=== PATIENT | male | born 1955 | race Caucasian/White ===

== ENCOUNTER 2024-04-11 06:16 | Day surgery (SDC) | payer MEDICARE, SELFPAY ==
[2024-04-11 12:20] LABS: Glucose - Point of Care 100 mg/dl (70-99)
== END 2024-04-11 14:30 | disposition home or self-care (01) ==
LOC: GI 06:16
PROVIDERS: ATTENDING PHYSICIAN Specialist
DX: Z12.11 Encounter for screening for malignant neoplasm of colon (principal); K63.3 Ulcer of intestine; K57.30 Diverticulosis of large intestine without perforation or abscess without bleeding; K52.9 Noninfective gastroenteritis and colitis, unspecified; D12.3 Benign neoplasm of transverse colon
CPT/HCPCS: 45385; 45380; 88305; 82962

== ENCOUNTER → 2024-05-24 10:57 | Outpatient (REF) | payer MEDICARE, SELFPAY ==
[2024-05-24 15:56] LABS: ALT (SGPT) 60 U/L (0-50); AST (SGOT) 40 U/L (17-59); Albumin 4.4 g/dl (3.5-5.0); Alkaline Phosphatase 63 U/L (38-126); Blood Urea Nitrogen 23 mg/dl (9-20); Calcium 9.6 mg/dl (8.4-10.2); Carbon Dioxide 29 mmol/L (22-30); Chloride 103 mmol/L (98-107); Glucose 97 mg/dl (70-99); HDL Cholesterol 69 mg/dl; Iron 118 ug/dl (49-181); LDL Cholesterol, Calculated 48 mg/dl; Potassium 4.3 mmol/L (3.5-5.1); Sodium 138 mmol/L (135-145); Total Bilirubin 0.8 mg/dl (0.2-1.3); Total Cholesterol 136 mg/dl (50-199); Total Protein 7.1 g/dl (6.3-8.2); Triglyceride 96 mg/dl (10-149); Very Low Density Lipoprotein 19 mg/dl (0-30); eGFR > 60.00
[2024-05-24 16:05] LABS: Percent Saturation 34 % (20-50); Total Iron Binding Capacity 340 ug/dl (261-462)
[2024-05-24 16:27] LABS: Hepatitis B Surface Antigen Negative (Negative)
[2024-05-24 16:45] LABS: Hepatitis B Core Ab, Total Negative (Negative); Hepatitis B Surface Antibody Negative; Hepatitis C Antibody Negative (Negative)
[2024-05-25 09:21] LABS: Glycohemoglobin (HgbA1c) 5.7 % (4.0-5.6)
[2024-05-26 19:14] LABS: ANA, IgG Reflex to HEp-2 None Detected (None Detected)
[2024-05-26 21:07] LABS: F-Actin Antibody IgG 5 Units (0-19); Mitochondrial M2 Ab, IgG 8.8 Units (0.0-24.9)
== END ==
LOC: HWRAD 10:57
PROVIDERS: ATTENDING PHYSICIAN Specialist; FAMILY PHYSICIAN Internal Medicine
DX: R79.89 Other specified abnormal findings of blood chemistry (principal); E78.00 Pure hypercholesterolemia, unspecified; J44.9 Chronic obstructive pulmonary disease, unspecified; C61 Malignant neoplasm of prostate; I10 Essential (primary) hypertension; F90.1 Attention-deficit hyperactivity disorder, predominantly hyperactive type; G25.81 Restless legs syndrome; E66.811 Obesity, class 1; Z68.31 Body mass index [BMI] 31.0-31.9, adult; R73.9 Hyperglycemia, unspecified
CPT/HCPCS: 36415; 76700; 80053; 80061; 82728; 83036; 83540; 83550; 86015; 86038; 86381; 86704; 86706; 86803; 87340